=== PATIENT | female | born 1980 | race Caucasian/White ===

== ENCOUNTER 2024-12-18 22:27 | Emergency (ER) | payer OTHER ==
[~2024-12-18] VITALS: Ht 152.4 cm; Wt 61.4 kg
[2024-12-18 22:27] VITALS: BP_SYST 130; RESP 18
[2024-12-18 22:41] VITALS: BP 130/95; PULSE 100; RESP 18; TEMP 98.3; O2SAT 97
[2024-12-18] MEDS ORDERED: MORPHINE SULFATE ONE (22:43)
[2024-12-18] MEDS: MORPHINE SULFATE IM STA (22:52)
[2024-12-18 23:01] VITALS: BP 130/95; PULSE 100; RESP 18; TEMP 98.3; O2SAT 97
[2024-12-18] MEDS ORDERED: DILAUDID 0.5 MG/0.5 ML SYRINGE ONE (23:29)
[2024-12-18 23:37] VITALS: BP 117/77; PULSE 98; RESP 18; TEMP 98.3; O2SAT 97
[2024-12-18] MEDS: DILAUDID 0.5 MG/0.5 ML SYRINGE IV STA (23:45)
[2024-12-19 00:35] VITALS: BP_SYST 114; BP_SYST 14; BP_DIAS 72; PULSE 87; RESP 18; TEMP 98.3; O2SAT 97
== END 2024-12-19 00:40 | disposition home or self-care (01) ==
LOC: ER 22:27
DX: S82.141A Displaced bicondylar fracture of right tibia, initial encounter for closed fracture (principal); Z88.1 Allergy status to other antibiotic agents; W01.0XXA Fall on same level from slipping, tripping and stumbling without subsequent striking against object, initial encounter; Y93.89 Activity, other specified; Y92.89 Other specified places as the place of occurrence of the external cause; Y99.8 Other external cause status
CPT/HCPCS: 99284; 96374; 29505; 73560; 73552; 73590; 96372; J2270; 73550-RT